=== PATIENT | male | born 1960 | race Asian ===

== ENCOUNTER 2017-04-27 02:59 | Emergency (ER) | payer OTHER ==
[2017-04-27] MEDS ORDERED: methylPREDNISolone 125 MG* 2 ML VIAL IV ONE (05:22)
[2017-04-27] MEDS ORDERED: Famotidine IV* 10 MG/ML 2 ML (20 mg) IV ONE (05:22)
[2017-04-27] MEDS ORDERED: diPHENhydraMINE IV* 50 MG/ML 1 ml VIAL (BENADRYL) IV ONE (05:22)
[2017-04-27] MEDS ORDERED: ceFAZolin 1 GM ADVAN(*) 1 GM in NS 0.9% 50 ML* 50 ML IVPB ONE (05:23)
[2017-04-27 07:46] VITALS: BP 115/69
--- NOTE | 2017-04-28 04:14 | ED ---
Franklyn Rios Benjamin, scribed for Patsy Kline MD on 04/27/17 at 0523 . Allergic Reaction/Systemic - HPI Summary HPI Summary: 57yo male presents to ED with redness and bilateral eye swelling for couple of days. Pt states pt was handling ginko nuts 4-5 days ago and symptoms first started with a rash on his right forearm 3-4 days ago. Pt then started feeling warm and itchy in his face, which since last night, became red and swollen as well. No known allergies, and no new medications. Pt takes lisinopril, metformin , rosuvastatin, alfuzosin hcl. Hx of HTN, HLD, and pt is pre-DM. Fhx of DM and HTN. No wheezing or SOB and no rash on his legs. Voice is not hoarse and no throat tightening. 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 Pt is accompanied by his son, Carlos. 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 Onset/Duration: Gradual Onset, Started days ago - 3 days ago, Still Present Timing: Constant Severity Initially: Mild Severity Currently: Moderate Pain Intensity: 0 Pain Scale Used: 0-10 Numeric Location: Discrete @ - face and right forearm Character: Swelling, Pruritus Aggravating Factor(s): Nothing Alleviating Factor(s): Nothing Associated Signs And Symptoms: Positive: Rash - Related Hx Possible Reaction To: Other: - ginko nuts - Allergies/Home Medications Allergies/Adverse Reactions: Allergies Allergy/AdvReac Type Severity Reaction Status Date / Time No Known Allergies Allergy Verified 04/27/17 03:05 PMH/Surg Hx/FS Hx/Imm Hx Endocrine/Hematology History: Reports: Hx Diabetes - "pre" Denies: Hx Thyroid Disease Cardiovascular History: Reports: Hx Hypercholesterolemia, Hx Hypertension Respiratory History: Denies: Hx Asthma, Hx Chronic Obstructive Pulmonary Disease (COPD) GI History: Denies: Hx Ulcer Psychiatric History: Reports: Hx Anxiety - Surgical History Surgery Procedure, Year, and Place: none Infectious Disease History: No Infectious Disease History: Denies: Hx Clostridium Difficile, Hx Hepatitis, Hx Human Immunodeficiency Virus (HIV), Hx of Known/Suspected MRSA, Hx Shingles, Hx Tuberculosis, Hx Known/ Suspected VRE, Hx Known/Suspected VRSA, History Other Infectious Disease, Traveled Outside the [place] in Last 30 Days - Family History Known Family History: Positive: Hypertension, Diabetes - Social History Occupation: Employed Full-time Lives: With Family Alcohol Use: None Substance Use Type: Reports: None Smoking Status (MU): Never Smoked Tobacco Review of Systems Constitutional: Negative Eyes: Negative ENT: Negative Cardiovascular: Negative Respiratory: Negative Gastrointestinal: Negative Genitourinary: Negative Musculoskeletal: Negative Positive: Rash, Other - swelling and redness in face; rash on right arm Neurological: Negative Psychological: Normal All Other Systems Reviewed And Are Negative: Yes Physical Exam Triage Information Reviewed: Yes Vital Signs On Initial Exam: Initial Vitals Temp Pulse Resp BP Pulse Ox 98.3 F 65 18 149/97 98 04/27/17 03:03 04/27/17 03:03 04/27/17 03:03 04/27/17 03:03 04/27/17 03:03 Vital Signs Reviewed: Yes Appearance: Positive: No Pain Distress, Well-Nourished, Ill-Appearing - mild Skin: Positive: Warm, Skin Color Reflects Adequate Perfusion, Erythema @ - face , Other - Erythematous macular popular lesions on right forearm that are excoriated. Head/Face: Positive: Other - erythema of cheeks, forehead, nose, chin. Swelling of eyelids, cheeks. Eyes: Positive: EOMI, MUNIRA, Conjunctiva Clear, Other: - swollen eyelids, no discharge or exudate from eyes ENT: Positive: Normal ENT inspection, Pharynx normal, TMs normal, Uvula midline , Other - normal voice Neck: Positive: Supple, Nontender, No Lymphadenopathy Respiratory/Lung Sounds: Positive: Clear to Auscultation, Breath Sounds Present Cardiovascular: Positive: RRR, Pulses are Symmetrical in both Upper and Lower Extremities. Negative: Murmur Abdomen Description: Positive: Nontender, Soft Bowel Sounds: Positive: Present Musculoskeletal: Positive: Strength/ROM Intact. Negative: Edema Left, Edema Right Neurological: Positive: Sensory/Motor Intact, Alert, Oriented to Person Place, Time, CN Intact II-III, Facial Symmetry, Speech Normal Psychiatric: Positive: Affect/Mood Appropriate - [place] Coma Scale Coma Scale Total: 15 Diagnostics - Vital Signs Vital Signs Temp Pulse Resp BP Pulse Ox 04/27/17 04:01 67 96 04/27/17 04:00 121/77 04/27/17 03:56 64 96 04/27/17 03:30 66 132/93 95 04/27/17 03:29 64 95 04/27/17 03:28 138/94 04/27/17 03:03 98.3 F 65 18 149/97 98 - Laboratory Lab Statement: Any lab studies that have been ordered have been reviewed, and results considered in the medical decision making process. Re-Evaluation - Re-Evaluation First Eval Re-Evaluation Time: 07:25 Change: Improved - after meds Allergic Reaction Course/Dx - Course Course Of Treatment: Reviewed pts medication and allergy lists. High Blood pressure noted. Pt given benadryl 50mg IV, solumedrol 125mg IV, pepcid 20mg IV and cefazolin 1 gm IV to treat for allergic reaction as well as possible early facial cellulitis. - Diagnoses Differential Diagnosis/HQI/PQRI: Positive: Anaphylaxis, Angioedema, Local Allergic Reaction, Other - cellulitis Provider Diagnoses: Facial cellulitis, local allergic reaction - Critical Care Time Critical Care Time: 30-74 min - 30 mins Discharge - Discharge Plan Condition: Stable Disposition: HOME Prescriptions: Cephalexin CAP* [Keflex CAP*] 500 mg PO QID #28 cap Famotidine TAB* [Pepcid 20 MG TAB*] 20 mg PO DAILY #7 tab predniSONE TAB* [Deltasone TAB*] 50 mg PO DAILY #4 tab Patient Education Materials: Cellulitis (ED), General Allergic Reaction (ED) Referrals: Edin Astorga MD [Primary Care Provider] - Burton Kwan MD [Medical Doctor] - Additional Instructions: Take 50mg Benadryl 4 times a day for the next 48 hours, then as needed. Take prednisone, cephalexin, and pepcid as directed. RETURN TO EMERGENCY DEPARTMENT FOR ANY NEW OR WORSENING SYMPTOMS. The documentation as recorded by the Franklyn shirley Benjamin accurately reflects the service I personally performed and the decisions made by , Patsy Kline MD.
== END 2017-04-27 07:45 | disposition home or self-care (01) ==
LOC: ED 02:59
DX: L03.211 Cellulitis of face (principal); T78.40XA Allergy, unspecified, initial encounter; R21 Rash and other nonspecific skin eruption; X58.XXXA Exposure to other specified factors, initial encounter
CPT/HCPCS: 96374; 96375; 99283; J0690; J1200; J2930

== ENCOUNTER 2017-07-10 10:34 | Emergency (ER) | payer OTHER ==
[2017-07-10 10:52] VITALS: BP 133/84
[2017-07-10] MEDS ORDERED: Ibuprofen TAB* 600 MG PO ONE (11:30)
--- NOTE | 2017-07-10 12:21 | ED ---
HPI Febrile Illness - HPI Summary HPI Summary: 57 YO M SEVERAL DAYS OF FEVER, RHINORRHEA, BODY ACHES, FRONTAL KRUGER. HAS HAD A RUNNY NOSE FOR MORE THAN 1 WEEK. NO VOMITING/DIARRHEA. NO DYSURIA. NO STIFF NECK. - History of Current Complaint Chief Complaint: UCRespiratory Time Seen by Provider: 07/10/17 11:19 Hx Obtained From: Patient Onset/Duration: Started Hours Ago Timing: Constant Current Severity: Mild Aggravating Factors: Unknown Alleviating Factors: OTC Medicine Associated Signs and Symptoms: Chills, Cough, Sore Throat - Allergy/Home Medications Allergies/Adverse Reactions: Allergies Allergy/AdvReac Type Severity Reaction Status Date / Time No Known Allergies Allergy Verified 04/27/17 03:05 Home Medications: Home Medications Alfuzosin HCl [Alfuzosin HCl ER] 10 mg PO DAILY 07/10/17 [History Confirmed ] Dayquil Liquid 30 ml PO Q6HR PRN 07/10/17 [History Confirmed 07/10/17] Rosuvastatin (NF) [Crestor (NF)] 5 mg PO DAILY 07/10/17 [History Confirmed 07/10] PMH/Surg Hx/FS Hx/Imm Hx Previously Healthy: Yes Endocrine/Hematology History: Reports: Hx Diabetes - "pre" Denies: Hx Thyroid Disease Cardiovascular History: Reports: Hx Hypercholesterolemia, Hx Hypertension Respiratory History: Denies: Hx Asthma, Hx Chronic Obstructive Pulmonary Disease (COPD) GI History: Denies: Hx Ulcer Psychiatric History: Reports: Hx Anxiety - Surgical History Surgery Procedure, Year, and Place: none Infectious Disease History: No Infectious Disease History: Denies: Hx Clostridium Difficile, Hx Hepatitis, Hx Human Immunodeficiency Virus (HIV), Hx of Known/Suspected MRSA, Hx Shingles, Hx Tuberculosis, Hx Known/ Suspected VRE, Hx Known/Suspected VRSA, History Other Infectious Disease, Traveled Outside the [place] in Last 30 Days - Family History Known Family History: Positive: Hypertension, Diabetes - Social History Alcohol Use: None Substance Use Type: Reports: None Smoking Status (MU): Never Smoked Tobacco Review of Systems Positive: Fever, Chills Eyes: Negative Positive: Ear Ache, Nasal Discharge Cardiovascular: Negative Respiratory: Negative Gastrointestinal: Negative Genitourinary: Negative Musculoskeletal: Negative Skin: Negative Neurological: Negative Psychological: Normal All Other Systems Reviewed And Are Negative: Yes Physical Exam Triage Information Reviewed: Yes Vital Signs On Initial Exam: Initial Vitals Temp Pulse Resp BP Pulse Ox 102.2 F 105 18 133/84 98 07/10/17 10:49 07/10/17 10:49 07/10/17 10:49 07/10/17 10:49 07/10/17 10:49 Vital Signs Reviewed: Yes Appearance: Positive: Ill-Appearing - MILD Skin: Positive: Warm, Skin Color Reflects Adequate Perfusion Head/Face: Positive: Normal Head/Face Inspection Eyes: Positive: EOMI, MUNIRA, Conjunctiva Clear ENT: Positive: Pharyngeal erythema, Nasal congestion, Nasal drainage, TMs normal , Uvula midline. Negative: Tonsillar swelling, Muffled voice Neck: Positive: Supple, Enlarged Nodes @ - ANTERIOR Respiratory/Lung Sounds: Positive: Clear to Auscultation Cardiovascular: Positive: Tachycardia Abdomen Description: Positive: Nontender Bowel Sounds: Positive: Present Musculoskeletal: Positive: Normal Neurological: Positive: Normal Psychiatric: Positive: Normal AVPU Assessment: Alert Diagnostics - Vital Signs Vital Signs Temp Pulse Resp BP Pulse Ox 07/10/17 10:49 102.2 F 105 18 133/84 98 - Laboratory Lab Results: Lab Results 07/10/17 Range/Units 11:28 Influenza A (Rapid) Negative (Negative) Influenza B (Rapid) Positive H (Negative) Lab Statement: Any lab studies that have been ordered have been reviewed, and results considered in the medical decision making process. Course/Dx - Diagnoses Provider Diagnoses: Influenza Discharge - Discharge Plan Condition: Stable Disposition: HOME Prescriptions: Oseltamivir CAP* [Tamiflu CAP*] 75 mg PO BID #10 cap Patient Education Materials: Influenza (ED) Referrals: Edin Astorga MD [Primary Care Provider] - Additional Instructions: FOLLOW UP WITH YOUR DOCTOR. GET RECHECKED FOR ANY WORSENING OF YOUR CONDITION OR QUESTIONS OR CONCERNS.
== END 2017-07-10 12:17 | disposition home or self-care (01) ==
LOC: UCEAST 10:34
DX: J11.1 Influenza due to unidentified influenza virus with other respiratory manifestations (principal); E78.00 Pure hypercholesterolemia, unspecified
CPT/HCPCS: 87502; 99212; A9270-GY; G0463

== ENCOUNTER 2019-01-06 08:02 | Emergency (ER) | payer OTHER ==
[2019-01-06 08:15] VITALS: BP 132/89
[2019-01-06] MEDS ORDERED: Sulfamethox/Trimethoprim DS 800/160* TAB PO ONE (09:11)
--- NOTE | 2019-01-06 09:15 | UC ---
Complaint Male HPI - HPI Summary HPI Summary: 58-year-old male comes in with a chief complaint of burning with urination. This started last evening. Reports when he tries to urinate he has suprapubic pain. Denies any pain in the penis or testicles or the urethra. No fevers or chills. Denies any flank pain. Patient is on alfuzosin. He has been on it for about 6 months for BPH. He does see urology. He reports taking his medication last night. - History of Current Complaint Chief Complaint: UCGU Stated Complaint: URINE ISSUES Time Seen by Provider: 01/06/19 08:21 Pain Intensity: 0 - Allergies/Home Medications Allergies/Adverse Reactions: Allergies Allergy/AdvReac Type Severity Reaction Status Date / Time No Known Allergies Allergy Verified 01/06/19 08:09 PMH/Surg Hx/FS Hx/Imm Hx Previously Healthy: Yes - BPH Endocrine History: Diabetes, Dyslipidemia Cardiovascular History: Hypertension - Surgical History Surgical History: None Surgery Procedure, Year, and Place: none - Family History Known Family History: Positive: Hypertension, Diabetes - Social History Alcohol Use: None Substance Use Type: None Smoking Status (MU): Never Smoked Tobacco - Immunization History Most Recent Influenza Vaccination: 2015 Most Recent Tetanus Shot: 5 OR 6 YEARS AGO Review of Systems All Other Systems Reviewed And Are Negative: Yes Constitutional: Positive: Negative Skin: Positive: Negative Eyes: Positive: Negative ENT: Positive: Negative Respiratory: Positive: Negative Cardiovascular: Positive: Negative Gastrointestinal: Positive: Other - SEE HPI Genitourinary: Positive: Dysuria Motor: Positive: Negative Neurovascular: Positive: Negative Musculoskeletal: Positive: Negative Neurological: Positive: Negative Psychological: Positive: Negative Is Patient Immunocompromised?: No Physical Exam Triage Information Reviewed: Yes Appearance: Well-Appearing, No Pain Distress, Well-Nourished Vital Signs: Initial Vital Signs Temp 97.5 F 01/06/19 08:10 Pulse 73 01/06/19 08:10 Resp 16 01/06/19 08:10 BP 132/89 01/06/19 08:10 Pulse Ox 99 01/06/19 08:10 Vital Signs Reviewed: Yes Eye Exam: Normal Eyes: Positive: Conjunctiva Clear Neck: Positive: Supple Respiratory: Positive: Lungs clear, Normal breath sounds, No respiratory distress Cardiovascular: Positive: RRR Abdomen Description: Positive: Soft, Other: - MILD SUPRAPUBIC TENDERNESS. Negative: CVA Tenderness (R), CVA Tenderness (L) Bowel Sounds: Positive: Present Musculoskeletal: Positive: Strength Intact, ROM Intact Neurological Exam: Normal Neurological: Positive: Alert, Muscle Tone Normal Psychological: Positive: Age Appropriate Behavior Skin Exam: Normal Complaint Male Course/Dx - Course Course Of Treatment: Patient was able to urinate in clinic. There was trace blood in the urine. Urine has been sent for culture. Because of the dysuria we'll treat with Bactrim DS. As we did not have access to ultrasound here and patient declined a catheter we do not have a postvoid residual today. I discussed going to the emergency department with the patient so that he could get an ultrasound to determine if he needed a Chau catheter and also to do lab work to check kidney functions. At this time the patient prefers to not go the emergency department and also not have a Chau catheter. Patient does not have any flank pain. I discussed with the labs would be used to ensure good kidney function. The plan at this time is to drink plenty of fluids, continue to take his BPH medication, take the Bactrim as prescribed and if not any worse or improved follow-up on Tuesday, January 08, 2019 with urology. However we discussed that if he didn't get worse at all with more pain suprapubically or flank pain or fevers or he felt ill or he could not urinate. He needs to go the emergency department for further evaluation and care. - Differential Dx/Diagnosis Provider Diagnosis: Dysuria Discharge - Sign-Out/Discharge Documenting (check all that apply): Patient Departure All imaging exams completed and their final reports reviewed: No Studies - Discharge Plan Condition: Stable Disposition: HOME Prescriptions: Sulfamethox/Trimethoprim DS* [Bactrim DS 800/160 TAB*] 1 tab PO BID #19 tab Patient Education Materials: Dysuria (ED) Referrals: Edin Astorga MD [Primary Care Provider] - Shashank Osorio MD [Medical Doctor] - Additional Instructions: FOLLOW UP WITH DR OSORIO. GO TO THE EMERGENCY DEPARTMENT IF YOUR CONDITION WORSENS; YOU ARE UNABLE TO URINATE, FEVER, ABDOMINAL OR FLANK PAIN, YOU FEEL ILL OR ANY QUESTIONS OR CONCERNS. - Billing Disposition and Condition Condition: STABLE Disposition: Home
--- NOTE | 2019-01-07 16:05 | UC ---
- Progress Note Progress Note: Urine culture showed no growth. Patient may DC bactrim and follow up as Dr Farrell recommended if symptoms persist. Course/Dx - Diagnoses Provider Diagnoses: Dysuria Discharge - Sign-Out/Discharge Documenting (check all that apply): Post-Discharge Follow Up All imaging exams completed and their final reports reviewed: No Studies - Discharge Plan Condition: Stable Disposition: HOME Prescriptions: Sulfamethox/Trimethoprim DS* [Bactrim DS 800/160 TAB*] 1 tab PO BID #19 tab Patient Education Materials: Dysuria (ED) Referrals: Edin Astorga MD [Primary Care Provider] - Shashank Osorio MD [Medical Doctor] - Additional Instructions: FOLLOW UP WITH DR OSORIO. GO TO THE EMERGENCY DEPARTMENT IF YOUR CONDITION WORSENS; YOU ARE UNABLE TO URINATE, FEVER, ABDOMINAL OR FLANK PAIN, YOU FEEL ILL OR ANY QUESTIONS OR CONCERNS. - Billing Disposition and Condition Condition: STABLE Disposition: Home
== END 2019-01-06 09:32 | disposition home or self-care (01) ==
LOC: UCEAST 08:02
DX: R30.0 Dysuria (principal); E11.9 Type 2 diabetes mellitus without complications; E78.5 Hyperlipidemia, unspecified; I10 Essential (primary) hypertension
CPT/HCPCS: 81003; 87086; 99212; A9270-GY; G0463

== ENCOUNTER 2019-01-06 11:50 | Emergency (ER) | payer OTHER ==
--- NOTE | 2019-01-06 12:35 | ED ---
GI/ HPI - HPI Summary HPI Summary: Patient is a 58-year-old male who presents emergency department for urinary retention since yesterday. Past medical history of diabetes, hypertension, BPH. Patient states yesterday he felt like he was urinating less today and was unable to urinate. He went to [facility] and was able to give a small u/a that showed rbcs. It was recommended pt. go to ER but pt. wanted to see how he did through the day. He was rx bactrim. Pt. states he has not been able to urinate since and has a lot of pressure to his bladder and penis. Pt. denies fever, flank pain , N/V. Pt. states he has never had this issue before. Sxs are moderate in severity. No current modifying factors. - History of Current Complaint Chief Complaint: EDUrogenitalProblems Time Seen by Provider: 01/06/19 12:21 Stated Complaint: DYSURIA PER [facility] Hx Obtained From: Patient Pain Intensity: 8 - Allergy/Home Medications Allergies/Adverse Reactions: Allergies Allergy/AdvReac Type Severity Reaction Status Date / Time No Known Allergies Allergy Verified 01/06/19 12:00 PMH/Surg Hx/FS Hx/Imm Hx Previously Healthy: Yes Endocrine/Hematology History: Reports: Hx Diabetes - pre-diabetic Denies: Hx Thyroid Disease Cardiovascular History: Reports: Hx Hypercholesterolemia, Hx Hypertension Respiratory History: Denies: Hx Asthma, Hx Chronic Obstructive Pulmonary Disease (COPD) GI History: Denies: Hx Ulcer Psychiatric History: Reports: Hx Anxiety - Surgical History Surgery Procedure, Year, and Place: none Infectious Disease History: No Infectious Disease History: Denies: Hx Clostridium Difficile, Hx Hepatitis, Hx Human Immunodeficiency Virus (HIV), Hx of Known/Suspected MRSA, Hx Shingles, Hx Tuberculosis, Hx Known/ Suspected VRE, Hx Known/Suspected VRSA, History Other Infectious Disease, Traveled Outside the [place] in Last 30 Days - Family History Known Family History: Positive: Hypertension, Diabetes, Non-Contributory - Social History Occupation: Employed Full-time Lives: With Family Alcohol Use: None Substance Use Type: Reports: None Smoking Status (MU): Never Smoked Tobacco Review of Systems Constitutional: Negative Negative: Fever, Chills Cardiovascular: Negative Respiratory: Negative Positive: Abdominal Pain. Negative: Vomiting, Diarrhea, Nausea Positive: other - urinary retention All Other Systems Reviewed And Are Negative: Yes Physical Exam Triage Information Reviewed: Yes Vital Signs On Initial Exam: Initial Vitals Temp Pulse Resp BP Pulse Ox 99.2 F 86 18 155/95 98 01/06/19 11:57 01/06/19 11:57 01/06/19 11:57 01/06/19 11:57 01/06/19 11:57 Vital Signs Reviewed: Yes Appearance: Positive: Well-Nourished - Pt. lying in bed, appears uncomfortable and anxious. Family present. Nontoxic appearing. Skin: Positive: Warm, Dry Head/Face: Positive: Normal Head/Face Inspection Eyes: Positive: Normal, EOMI, MUNIRA Neck: Positive: Supple Respiratory/Lung Sounds: Positive: Clear to Auscultation, Breath Sounds Present Cardiovascular: Positive: Normal, RRR Abdomen Description: Positive: Other: - Bladder distended with pain on palpation. Otherwise abd. is soft and nontender. No CVA tenderness bilaterally. Neurological: Positive: Normal, CN Intact II-III Psychiatric: Positive: Affect/Mood Appropriate Diagnostics - Vital Signs Vital Signs Temp Pulse Resp BP Pulse Ox 01/06/19 11:57 99.2 F 86 18 155/95 98 - Laboratory Result Diagrams: 01/06/19 12:47 01/06/19 12:52 Lab Statement: Any lab studies that have been ordered have been reviewed, and results considered in the medical decision making process. GIGU Course/Dx - Course Assessment/Plan: Pt. presenting with urinary retention. Afebrile. U/A at [facility] showed RBCs. Pt. was given pyridium and bactrim in [facility]. Bladder scan shows > 800cc. Christianson catheter placed. Pt. had instant relief of pain. CBC and CMP unremarkable. U/A here is nitrate positive but suspect that is from pyridium. Will dc pt. home with christianson. He sees Dr. Cruz, urology. To call office on Tuesday for an apt. in 2-3 days. Advised to continue bactrim for potential UTI. Will return to ER if sxs change or worsen. Pt. understands and agrees with plan. - Diagnoses Differential Diagnoses - Male: Cystitis, Pyelonephritis, Renal Calculi, Urinary Tract Infection Provider Diagnoses: Urinary retention Discharge - Sign-Out/Discharge Documenting (check all that apply): Patient Departure Patient Received Moderate/Deep Sedation with Procedure: No - Discharge Plan Condition: Improved Disposition: HOME Patient Education Materials: Urinary Retention in Men (ED), Christianson Catheter Placement and Care (ED) Forms: *Work Release Referrals: Edin Astorga MD [Primary Care Provider] - Shashank Cruz MD [Medical Doctor] - Additional Instructions: Call urology office on Tuesday to schedule a follow up appointment in 2-3 days Take antibiotic as directed Return to ER if symptoms change or worsen - Billing Disposition and Condition Condition: IMPROVED Disposition: Home
[2019-01-06 13:00] LABS: ABS Lymphocytes 1.3 10^3/ul (1.0-4.8); ABS Monocytes 0.4 10^3/ul (0-0.8); ABS Neutrophils 7.1 10^3/ul (1.5-7.7); Eosinophil % 0.4 %; Hematocrit 45 % (42-52); Hemoglobin 15.4 g/dL (14.0-18.0); Lymphocyte % 14.2 %; Mean Corpuscular HGB Conc 34 g/dL (31-36); Mean Corpuscular Hemoglobin 29 pg (27-31); Mean Corpuscular Volume 86 fL (80-94); Mean Platelet Volume 8.1 fL (7.4-10.4); Platelet Count 227 10^3/uL (150-450); Red Blood Count 5.23 10^6 /uL (4.18-5.48); Red Cell Distribution Width 13 % (10-15); White Blood Count 8.9 10^3/uL (3.5-10.8)
[2019-01-06 13:15] LABS: Urine Appearance Clear; Urine Bacteria Absent (Absent); Urine Bilirubin Negative (Negative); Urine Blood 1+ (Negative); Urine Color Amber; Urine Glucose 1+(50 mg/dL) (Negative); Urine Ketones Negative (Negative); Urine Nitrite Positive (Negative); Urine Protein Negative (Negative); Urine Red Blood Cell 2+(6-10/hpf) (Absent); Urine Specific Gravity 1.011 (1.010-1.030); Urine Urobilinogen Negative (Negative); Urine White Blood Cell Trace(0-5/hpf) (Absent)
[2019-01-06 13:17] LABS: Albumin 4.5 g/dL (3.2-5.2); Albumin/Globulin Ratio 1.4 (1-3); BUN/Creatinine Ratio 24.1 (8-20); Calcium 9.6 mg/dL (8.6-10.3); EGFR African American 172.9 (>60); EGFR Non-African American 142.9 (>60); Globulin 3.3 g/dL (2-4); Potassium 3.9 mmol/L (3.5-5.0); Total Bilirubin 0.5 mg/dL (0.2-1.0); Total Protein 7.8 g/dL (6.4-8.9)
[2019-01-06 15:03] VITALS: BP 126/79
== END 2019-01-06 15:01 | disposition home or self-care (01) ==
LOC: ED 11:50
DX: R33.9 Retention of urine, unspecified (principal); I10 Essential (primary) hypertension; E78.00 Pure hypercholesterolemia, unspecified
CPT/HCPCS: 36415; 80053; 81003; 81015; 85025; 99282

== ENCOUNTER 2019-09-14 20:38 | Emergency (ER) | payer OTHER ==
--- NOTE | 2019-09-14 21:15 | ED ---
Influenza-Like Illness - HPI Summary HPI Summary: Patient complains of fever up to 100.5 starting 4 hours ago, cough and runny nose 1 day. Denies sore throat, neck stiffness, CP, SOB, N/V/D, abdominal pain , change in urine, change in BM. Medical history is DM, HTN. Patient taking Tylenol for fever control. Denies recent travel, known COVID exposure.. - History of Current Complaint Chief Complaint: EDUpperRespComplaint Time Seen by Provider: 09/14/19 21:04 Hx Obtained From: Patient Onset/Duration: Gradual Onset, Lasting Days Severity: Mild Associated Signs & Symptoms: Fever, Cough, Nasal Congestion - Allergy/Home Medications Allergies/Adverse Reactions: Allergies Allergy/AdvReac Type Severity Reaction Status Date / Time No Known Allergies Allergy Verified 09/14/19 22:22 Home Medications: Home Medications Lisinopril TAB* [Prinivil TAB 10 MG*] 20 mg PO DAILY 08/23/12 [History Confirmed 09/14/19] metFORMIN* [Glucophage 500 MG TAB *] 500 mg PO DAILY 04/19/16 [History Confirmed 09/14/19] Alfuzosin HCl [Alfuzosin HCl ER] 10 mg PO DAILY 07/10/17 [History Confirmed ] Rosuvastatin (NF) [Crestor (NF)] 5 mg PO DAILY 07/10/17 [History Confirmed 09/13] Sulfamethox/Trimethoprim DS* [Bactrim DS 800/160 TAB*] 1 tab PO BID #19 tab [Rx Confirmed 09/14/19] PMH/Surg Hx/FS Hx/Imm Hx Endocrine/Hematology History: Reports: Hx Diabetes - pre-diabetic Denies: Hx Thyroid Disease Cardiovascular History: Reports: Hx Hypercholesterolemia, Hx Hypertension Respiratory History: Denies: Hx Asthma, Hx Chronic Obstructive Pulmonary Disease (COPD) GI History: Denies: Hx Ulcer History: Denies: Hx Dialysis Sensory History: Denies: Hx Eye Prosthesis Opthamlomology History: Denies: Hx Legally Blind EENT History: Denies: Hx Deafness Psychiatric History: Reports: Hx Anxiety - Surgical History Surgery Procedure, Year, and Place: none Infectious Disease History: No Infectious Disease History: Denies: Hx Clostridium Difficile, Hx Hepatitis, Hx Human Immunodeficiency Virus (HIV), Hx of Known/Suspected MRSA, Hx Shingles, Hx Tuberculosis, Hx Known/ Suspected VRE, Hx Known/Suspected VRSA, History Other Infectious Disease, Traveled Outside the [place] in Last 30 Days - Family History Known Family History: Positive: Hypertension, Diabetes, Non-Contributory - Social History Alcohol Use: None Substance Use Type: Reports: None Smoking Status (MU): Never Smoked Tobacco Review of Systems Positive: Fever Eyes: Negative Positive: Nasal Discharge Cardiovascular: Negative Positive: Cough Gastrointestinal: Negative Genitourinary: Negative Musculoskeletal: Negative Skin: Negative Neurological/Mental Status: Negative Psychological: Normal All Other Systems Reviewed And Are Negative: Yes Physical Exam Triage Information Reviewed: Yes Vital Signs On Initial Exam: Initial Vitals Temp Pulse Resp BP Pulse Ox 98.9 F 95 16 142/77 97 09/14/19 20:45 09/14/19 20:45 09/14/19 20:45 09/14/19 20:45 09/14/19 20:45 Vital Signs Reviewed: Yes Appearance: Positive: Well-Appearing Skin: Positive: Warm Head/Face: Positive: Normal Head/Face Inspection Eyes: Positive: Normal ENT: Positive: Normal ENT inspection Neck: Positive: Supple Respiratory/Lung Sounds: Positive: Clear to Auscultation Cardiovascular: Positive: Normal Abdomen Description: Positive: Nontender Musculoskeletal: Positive: Normal Neurological: Positive: Normal Psychiatric: Positive: Normal AVPU Assessment: Alert - Drury Coma Scale Best Eye Response: 4 - Spontaneous Best Motor Response: 6 - Obeys Commands Best Verbal Response: 5 - Oriented Coma Scale Total: 15 Procedures - Sedation Patient Received Moderate/Deep Sedation with Procedure: No Diagnostics - Vital Signs Vital Signs Temp Pulse Resp BP Pulse Ox 09/14/19 20:45 98.9 F 95 16 142/77 97 - Laboratory Lab Statement: Any lab studies that have been ordered have been reviewed, and results considered in the medical decision making process. Flu Symptom Course/Dx - Course Course Of Treatment: Patient complains of fever up to 100.5 starting 4 hours ago , cough and runny nose 1 day. Denies sore throat, neck stiffness, CP, SOB, N/V /D, abdominal pain, change in urine, change in BM. Medical history is DM, HTN. Patient taking Tylenol for fever control. Denies recent travel, known COVID exposure.. Vital signs within normal limits. Flu negative. Covid test results pending. Patient discharged to self quarantine. - Diagnoses Provider Diagnoses: Viral syndrome Discharge ED - Sign-Out/Discharge Documenting (check all that apply): Patient Departure - Discharge Plan Condition: Stable Disposition: HOME Patient Education Materials: Viral Syndrome (ED) Forms: COVID-19 Tested & Isolation Referrals: Edin Astorga MD [Primary Care Provider] - Additional Instructions: Please follow instructions for self quarantine. Return to the ED for worsening symptoms. - Billing Disposition and Condition Condition: STABLE Disposition: Home - Attestation Statements Provider Attestation: I was available for consultation for this patient. I did not evaluate the patient or participate in any medical decision making or disposition decisions unless I am specifically named in the chart as having consulted on the patient. If I have consulted on the patient, please see my own ED note on the patient encounter. Sarah Shepard MD
[2019-09-14 22:05] LABS: Influenza A Molecular Negative (Negative); Influenza B Molecular Negative (Negative)
[2019-09-14 22:17] VITALS: BP 144/78
== END 2019-09-14 22:17 | disposition home or self-care (01) ==
LOC: ED 20:38
DX: B34.9 Viral infection, unspecified (principal); E11.9 Type 2 diabetes mellitus without complications; Z79.84 Long term (current) use of oral hypoglycemic drugs; I10 Essential (primary) hypertension; E78.00 Pure hypercholesterolemia, unspecified; Z79.899 Other long term (current) drug therapy
CPT/HCPCS: 99282; U0002